=== PATIENT | female | born 1965 | race Caucasian/White ===

== ENCOUNTER 2020-09-11 07:34 | Day surgery (SDC) | payer OTHER ==
[2020-09-11 08:16] LABS: Potassium 3.9 mmol/L (3.5-5.1)
[2020-09-11 08:27] LABS: Absolute Lymphocytes (CBC) 2.1 K/uL (0.7-4.9); Basophils % 0.7 % (0-1.3); Hematocrit 36.3 % (36.0-45.0); Lymphocytes % 20.3 % (15.3-44.8); MPV 7.5 fL (7.6-11.3); RBC Red Blood Cell Count 4.22 M/uL (3.86-4.86)
[2020-09-11] MEDS ORDERED: BUPIVACAINE 0.5% PF 10 ML VIAL ONE (08:42)
--- NOTE | 2020-09-11 08:47 | RAD REPORT ---
EXAM DESCRIPTION: RAD - Chest Pa And Lat (2 Views) - 09/11/2020 8:32 am CLINICAL HISTORY: PREOP STAT, SAME DAY SURGERY, BED 7, pending abscess removal, history of hypertens ion COMPARISON: None TECHNIQUE: Frontal and lateral views of the chest were obtained. FINDINGS: The lungs are clear. Heart size is normal and central vasculature is within normal limit s. No pleural effusion or pneumothorax seen. No acute bony finding noted. No aortic abnormality. IMPRESSION: No acute cardiopulmonary process.
[2020-09-11] MEDS: Ringers Lactate 1,000 ML IV ONE ×2 (09:00→09:09)
[2020-09-11] MEDS ORDERED: FENTANYL CITR 100 MCG/2 ML ONE (09:09)
[2020-09-11] MEDS ORDERED: propofoL 200 MG/20 ML VIAL IV ONE (09:09)
[2020-09-11] MEDS ORDERED: LIDOCAINE 1% MPF 5 ML VIAL ONE (09:09)
[2020-09-11] MEDS ORDERED: MIDAZOLAM HCL 2 MG/2 ML INJ ONE (09:09)
[2020-09-11] MEDS ORDERED: CIPROFLOXACIN 400mg IV 400 MG/200 ML BAG IV ONE (09:11)
[2020-09-11] MEDS ORDERED: dexAMETHasone 10 MG/ML VIAL ONE (09:41)
[2020-09-11] MEDS ORDERED: ONDANSETRON 4 MG/2 ML VIAL ONE (09:52)
[2020-09-11] MEDS ORDERED: KETOROLAC 30 MG/ML INJ ONE (09:52)
--- NOTE | 2020-09-11 09:52 | P.BOP ---
Preoperative diagnosis: Abd wall cellulitis , necrotic wound, complex abscess Postoperative diagnosis: same Primary procedure: Excisional debridementAbd wall necrotic wound with complex abscess drainage Secondary procedure: 10x3cm Estimated blood loss: <30cc Specimen: pus, necrotic tissue Anesthesia: General Complications: None Transferred to: Recovery Room Condition: Good
[2020-09-11] MEDS ORDERED: EPHEDRINE SULF 50 MG/ML VIAL ONE (09:53)
[2020-09-11] MEDS ORDERED: NS 0.9% VIAL 10 ML ONE (09:53)
[2020-09-11 11:37] VITALS: TEMP 96.6
[2020-09-11 12:08] VITALS: BP 128/72; O2SAT 97
--- NOTE | 2020-09-11 12:38 | EKG ---
Test Date: 2020-09-11 Test Time: 07:43:05 Pricing Intern: OTONIEL MEASUREMENT RESULTS: Intervals: Rate: 64 CO: 156 QRSD: 84 QT: 398 QTc: 410 Marshall: P: 46 CO: 156 QRS: 42 T: 11 INTERPRETIVE STATEMENTS: Normal sinus rhythm Normal ECG No previous ECG available for comparison Electronically Signed On 09-11-20 12:37:31 CDT by Dav Witt
== END 2020-09-11 12:53 | disposition home health service (06) ==
LOC: OR 07:34
PROVIDERS: ATTEND Surgery
PROC: 0HB7XZZ Excision of Abdomen Skin, External Approach (ICD-10-PCS; principal; 2020-09-11 09:45)
DX: S31.109A Unspecified open wound of abdominal wall, unspecified quadrant without penetration into peritoneal cavity, initial encounter (principal); L03.311 Cellulitis of abdominal wall; L02.211 Cutaneous abscess of abdominal wall
CPT/HCPCS: 97597; 97598; 93005; 87070; 85025; 80048; 36415; 87205; 88304; 87075; 87077; 87186; 71046; J2704; J2250; J3010; J1100; J7120; J2405; J0744